=== PATIENT | male | born 1980 | race African-American/Black ===

== ENCOUNTER → 2020-01-26 | Outpatient (CLI) | payer MEDICAID ==
--- NOTE | 2020-01-27 10:36 | RADIOLOGY REPORT (SQ) ---
EXAM DESCRIPTION: U/S THYROID/SFT TISS HD NECK IMAGES COMPLETED DATE/TIME: 01/26/2020 5:31 pm REASON FOR STUDY: (R22.1)LOCALIZED SWELLING, MASS AND LUMP, NECK R22.1 LOCALIZED SWELLING, MASS AND LUMP, NECK COMPARISON: None. TECHNIQUE: Dynamic and static grayscale and color Doppler images of the site of palpable abnormality on the left side of the neck were obtained. For comparison the contralateral side was also evaluate d. LIMITATIONS: None. FINDINGS: The linear echogenic structure that courses through the subcutaneous tissues on the left s aric of the neck is presumed to represent the wires of the vagus nerve stimulator ; at the site of pal pable abnormality there is a focal hypoechoic area that surrounds the wire. There is no adenopathy, mass or abscess. IMPRESSION: The wires of the vagus nerve stimulator course through the subcutaneous tissues on the l eft side of the neck ; the focal hypoechoic area that surrounds the wire at the site of palpable abno rmality could represent a small amount of fluid. There is no adenopathy, mass or abscess. TECHNICAL DOCUMENTATION: JOB ID: [id number] 2010 [employer]- All Rights Reserved Reading location - IP/workstation name: [email or web address]
== END ==
LOC: RAD 16:35
PROVIDERS: ATTEND Family Medicine
DX: R22.1 Localized swelling, mass and lump, neck (principal)
CPT/HCPCS: 76536